=== PATIENT | female | born 1975 | race Hispanic/Latino ===

== ENCOUNTER 2021-09-17 13:59 | Inpatient (IN) | payer BC ==
[~2021-09-17 13:59] MED LIST: Iopamidol-370 76% 500 ML 1 ML ONE
[2021-09-17 17:05] VITALS: BMI 43.7
[2021-09-17] MEDS ORDERED: hydrALAZINE 20 MG/ML VIAL SLOW IVP PRN (18:16)
[2021-09-17] MEDS ORDERED: Dextrose 50% Abboject 50 ML SYRINGE SLOW IVP PRN (18:21)
[2021-09-17] MEDS ORDERED: Dextrose 5% in Water 1,000 ML IV PRN (18:21)
[2021-09-17] MEDS ORDERED: Ondansetron ODT 4 MG TAB PO PRN (18:23)
[2021-09-17] MEDS ORDERED: Pantoprazole 40 MG VIAL IVP SCH (18:25)
[2021-09-17] MEDS ORDERED: Nitroglycerin 0.4 MG TAB (25 Tab Bottle) SL PRN (18:28)
[2021-09-17] MEDS ORDERED: Electrolyte Replacement Protocol 1 EACH FS SCH (18:30)
[2021-09-17] MEDS ORDERED: Ondansetron PF 4 MG/2 ML Vial IVP SCH (18:30)
[2021-09-17] MEDS ORDERED: Morphine 4 MG/ML VIAL SLOW IVP SCH (18:30)
[2021-09-17] MEDS ORDERED: Famotidine/PF 20 mg/2ml Vial SLOW IVP SCH (19:15)
[2021-09-17] MEDS ORDERED: Aspirin Chewable 81 MG TAB PO SCH (19:15)
[2021-09-17 19:19] LABS: Alcohol Less than 10 mg/dL (Less than 10); Cardiac Risk 2.9 (Less than 4.5); Cholesterol 172 mg/dl (< 200 Desired); HDL Cholesterol 60 mg/dL (>60 Neg Risk); LDL Cholesterol, Calculated 92 mg/dL; Magnesium 1.5 mg/dL (1.6-2.6); Triglycerides 101 mg/dL (Less than 150)
[2021-09-17 19:43] LABS: CKMB 3.9 ng/mL (0-6.6)
[2021-09-17] MEDS ORDERED: Promethazine HCl 12.5 MG in Sodium Chloride 0.9% 50 ML IVPB PRN (20:32)
[2021-09-17] MEDS: Sodium Chloride 0.9% 1,000 ML IV SCH (21:17)
[2021-09-17] MEDS: Fioricet 325/50/40 mg Tablet PO PRN (21:18)
[2021-09-17] MEDS: Atorvastatin Calcium 40 MG TAB PO SCH (22:34)
[2021-09-18] MEDS: Fioricet 325/50/40 mg Tablet PO PRN ×4 (01:08→21:03)
[2021-09-18] MEDS: Sodium Chloride 0.9% 1,000 ML IV SCH ×4 (07:32→23:12)
[2021-09-18] MEDS ORDERED: Magnesium 2 GM/50 ML(in water) 2 GM in Premix Bag 1 BAG IVPB SCH (08:00)
[2021-09-18] MEDS ORDERED: Famotidine/PF 20 mg/2ml Vial SLOW IVP SCH (09:00)
[2021-09-18 09:13] LABS: #Basophils 0.1 thou/uL (0.0-0.2); #Eosinphils 0.3 thou/uL (0.0-0.7); #Monocytes 0.8 thou/uL (0.11-0.59); #Neutrophils 7.1 thou/uL (1.40-6.50); %Basophils 0.8 % (0.0-1.0); %Eosinophils 2.4 % (0.0-10.0); %Monocytes 6.8 % (0.0-10.0); %Neutrophils 63.1 % (42.0-75.0); Hemoglobin 13.9 g/dL (12.0-16.0); Mean Corpuscular HGB CONC 33.5 g/dL (32.0-36.0); Mean Corpuscular Hemoglobin 32.9 pg (27.0-31.0); Mean Platelet Volume 9.5 fL (7.4-10.4); Platelet Count 137 thou/uL (130-400); RBC Distribution Width 13.5 % (11.5-14.5); Red Blood Cell (RBC) Count 4.22 mill/uL (4.20-5.40); White Blood Cell (WBC) Count 11.2 thou/uL (4.8-10.8)
[2021-09-18 09:14] LABS: Hemoglobin A1c 8.1 % (4.0-6.0)
[2021-09-18 09:32] LABS: ALT (SGPT) 26 U/L (8-55); AST (SGOT) 37 U/L (5-34); Albumin 3.8 g/dL (3.5-5.0); Alkaline Phosphatase 111 U/L (40-110); Anion Gap 14 mmol/L (10-20); BUN (Urea Nitrogen) 9 mg/dL (7.0-18.7); Bilirubin, Total 0.9 mg/dL (0.2-1.2); Calc. Creatinine Clearance 143 mL/min (70-130); Calcium 8.9 mg/dL (7.8-10.44); Carbon Dioxide 23 mmol/L (22-29); Chloride 104 mmol/L (98-107); Estimated GFR 94; Globulin 3.5 g/dL (2.4-3.5); Glucose 228 mg/dL (70-105); Lipase 85 U/L (8-78); Magnesium 1.6 mg/dL (1.6-2.6); Potassium 3.6 mmol/L (3.5-5.1); Protein, Total 7.3 g/dL (6.0-8.3); Sodium 137 mmol/L (136-145)
[2021-09-18] MEDS: Enoxaparin Sodium 40 MG/0.4 ML SYRINGE SC SCH (09:51)
[2021-09-18] MEDS: Aspirin Chewable 81 MG TAB PO SCH (09:51)
[2021-09-18] MEDS: HumaLOG 300 UNITS/3 ML VIAL SC PRN ×3 (12:48→21:12)
[2021-09-18] MEDS: Ondansetron PF 4 MG/2 ML Vial IVP PRN (15:12)
[2021-09-18] MEDS: Nicotine 21 MG PATCH TD SCH (16:02)
[2021-09-18] MEDS: Atorvastatin Calcium 40 MG TAB PO SCH (21:03)
[2021-09-18] MEDS ORDERED: Ketorolac Tromethamine 30 MG/ML VIAL IVP SCH (23:00)
[2021-09-19] MEDS ORDERED: Ketorolac Tromethamine 30 MG/ML VIAL IVP SCH (04:30)
[2021-09-19 04:58] LABS: ALT (SGPT) 26 U/L (8-55); AST (SGOT) 44 U/L (5-34); Albumin 3.4 g/dL (3.5-5.0); Alkaline Phosphatase 134 U/L (40-110); Anion Gap 10 mmol/L (10-20); BUN (Urea Nitrogen) 8 mg/dL (7.0-18.7); Bilirubin, Total 0.5 mg/dL (0.2-1.2); Calc. Creatinine Clearance 139 mL/min (70-130); Calcium 8.3 mg/dL (7.8-10.44); Carbon Dioxide 25 mmol/L (22-29); Chloride 108 mmol/L (98-107); Estimated GFR 91; Globulin 3.1 g/dL (2.4-3.5); Glucose 222 mg/dL (70-105); Magnesium 2.1 mg/dL (1.6-2.6); Potassium 4.1 mmol/L (3.5-5.1); Protein, Total 6.5 g/dL (6.0-8.3); Sodium 139 mmol/L (136-145)
[2021-09-19 05:44] LABS: #Eosinphils 0.3 thou/uL (0.0-0.7); #Lymphocytes 2.6 thou/uL (1.20-3.40); #Monocytes 0.5 thou/uL (0.11-0.59); #Neutrophils 3.8 thou/uL (1.40-6.50); %Basophils 0.5 % (0.0-1.0); %Eosinophils 4.7 % (0.0-10.0); %Lymphocytes 35.9 % (21.0-51.0); %Monocytes 6.9 % (0.0-10.0); Hemoglobin 12.5 g/dL (12.0-16.0); Mean Corpuscular HGB CONC 33.2 g/dL (32.0-36.0); Mean Corpuscular Hemoglobin 33.2 pg (27.0-31.0); Mean Corpuscular Volume 99.7 fL (78.0-98.0); Mean Platelet Volume 9.2 fL (7.4-10.4); Platelet Count 107 thou/uL (130-400); Platelet Morphology Comment Appears Decreased; RBC Distribution Width 13.6 % (11.5-14.5); Red Blood Cell (RBC) Count 3.76 mill/uL (4.20-5.40); White Blood Cell (WBC) Count 7.3 thou/uL (4.8-10.8)
[2021-09-19] MEDS: HumaLOG 300 UNITS/3 ML VIAL SC PRN ×2 (05:56→21:37)
[2021-09-19] MEDS: Sodium Chloride 0.9% 1,000 ML IV SCH ×3 (06:19→22:17)
[2021-09-19] MEDS ORDERED: Nicotine 21 MG PATCH TD SCH (09:00)
[2021-09-19 09:43] LABS: HBCM Index 0.05 S/CO (0-0.79); HBSAg Index 0.29 S/CO (0-0.99); Hep A IgM AB Non-Reactive (NonReactive); Hep A IgM S/CO 0.14 S/CO (0-0.79); Hep B Surf Ag Non-Reactive S/CO (NonReactive); Hep C IgG Ab Non-Reactive (NonReactive); Hep C Index 0.11 S/CO (0-0.79); Hepatitis B Core IgM Abs Non-Reactive (NonReactive)
[2021-09-19] MEDS: Aspirin Chewable 81 MG TAB PO SCH (09:48)
[2021-09-19] MEDS: Ketorolac Tromethamine 30 MG/ML VIAL IVP PRN ×2 (12:32→21:15)
[2021-09-19] MEDS: Enoxaparin Sodium 40 MG/0.4 ML SYRINGE SC SCH (12:32)
[2021-09-19 13:22] LABS: INR-International Normal Ratio 1.1; Prothrombin Time 13.8 sec (12.0-14.7)
[2021-09-19] MEDS: Nicotine 21 MG PATCH TD SCH ×2 (15:57→21:30)
[2021-09-19] MEDS: Atorvastatin Calcium 40 MG TAB PO SCH (21:17)
[2021-09-20] MEDS: Ketorolac Tromethamine 30 MG/ML VIAL IVP PRN ×3 (05:30→21:03)
[2021-09-20] MEDS: HumaLOG 300 UNITS/3 ML VIAL SC PRN ×3 (05:32→23:29)
[2021-09-20] MEDS: metFORMIN 500 MG TAB PO SCH ×2 (12:05→18:16)
[2021-09-20] MEDS: Aspirin Chewable 81 MG TAB PO SCH (12:06)
[2021-09-20] MEDS: Enoxaparin Sodium 40 MG/0.4 ML SYRINGE SC SCH (12:06)
[2021-09-20] MEDS: Ondansetron PF 4 MG/2 ML Vial IVP PRN (12:15)
[2021-09-20] MEDS: Fioricet 325/50/40 mg Tablet PO PRN (13:05)
[2021-09-20] MEDS ORDERED: Iopamidol 15 ML ONE (13:59)
[2021-09-20] MEDS ORDERED: Bupivacaine PF 0.5% 30 ML VIAL ONE (13:59)
[2021-09-20] MEDS ORDERED: EPINEPHrine 1 MG/ML AMP ONE (13:59)
[2021-09-20] MEDS ORDERED: Scopolamine 1.5 mg/72 hour Patch TD SCH (14:00)
[2021-09-20] MEDS ORDERED: Fentanyl 100 MCG/2 ML VIAL ONE ×3 (14:49→18:54)
[2021-09-20] MEDS ORDERED: Ketorolac Tromethamine 30 MG/ML VIAL IVP SCH (15:00)
[2021-09-20] MEDS ORDERED: fentaNYL Citrate/PF 100 MCG/2 ML SYRINGE ONE (16:10)
[2021-09-20] MEDS ORDERED: Lidocaine 2% 6 ML SYR ONE (16:17)
[2021-09-20] MEDS ORDERED: Sodium Chloride 0.9% 100 ML ONE (16:21)
[2021-09-20] MEDS ORDERED: CEFAZOLIN 2 GM VIAL ONE (16:21)
[2021-09-20] MEDS ORDERED: PROPOFOL 200 MG/20 ML VIAL ONE (16:32)
[2021-09-20] MEDS ORDERED: Phenylephrine 10 MG/ML VIAL ONE (16:32)
[2021-09-20] MEDS ORDERED: diphenhydrAMINE 50 MG/ML VIAL ONE (16:32)
[2021-09-20] MEDS ORDERED: Metoclopramide HCl 10 MG/2 ML VIAL ONE (16:32)
[2021-09-20] MEDS ORDERED: Ondansetron PF 4 MG/2 ML Vial ONE (16:32)
[2021-09-20] MEDS ORDERED: Lidocaine 1% PF 5 ML VIAL ONE (16:32)
[2021-09-20] MEDS ORDERED: Ketorolac Tromethamine 30 MG/ML VIAL ONE (16:32)
[2021-09-20] MEDS ORDERED: Rocuronium Bromide 10 MG/ML (10ML VIAL) ONE (16:32)
[2021-09-20] MEDS ORDERED: Neostigmine Methylsulfate 3 MG/3 ML SYRINGE ONE (16:32)
[2021-09-20] MEDS ORDERED: Glycopyrrolate 0.2 MG/ML 5 ML SYRINGE ONE (16:32)
[2021-09-20] MEDS ORDERED: Succinylcholine 200 MG/10 ml SYRINGE FS ONE (16:32)
[2021-09-20] MEDS ORDERED: traMADol HCl 50 MG TAB PO PRN (16:59)
[2021-09-20] MEDS ORDERED: Acetaminophen 500 MG TAB PO PRN (16:59)
[2021-09-20] MEDS ORDERED: Non-Formulary Item 1 EACH (Butalb/Acetaminophen/Caffeine [Butalb-Acetamin-Caff 50-325-40] PO PRN (17:00)
[2021-09-20] MEDS ORDERED: Acetaminophen 500 MG TAB PO SCH (17:00)
[2021-09-20] MEDS ORDERED: HYDROmorphone 2 MG/ML VIAL ONE ×2 (17:56→19:20)
[2021-09-20] MEDS: Sodium Chloride 0.9% 1,000 ML IV SCH (18:15)
[2021-09-20] MEDS: Nicotine 21 MG PATCH TD SCH (18:16)
[2021-09-20] MEDS ORDERED: Rosuvastatin 20 MG TAB PO SCH (21:00)
[2021-09-20] MEDS ORDERED: Losartan 25 MG TAB PO SCH (21:00)
[2021-09-21] MEDS: Ketorolac Tromethamine 30 MG/ML VIAL IVP PRN ×3 (00:14→12:54)
[2021-09-21] MEDS: Morphine 4 MG/ML VIAL SLOW IVP PRN ×3 (00:17→08:31)
[2021-09-21] MEDS: Sodium Chloride 0.9% 1,000 ML IV SCH (01:29)
[2021-09-21] MEDS: Fioricet 325/50/40 mg Tablet PO PRN ×2 (03:45→09:26)
[2021-09-21] MEDS: HumaLOG 300 UNITS/3 ML VIAL SC PRN ×2 (06:09→12:52)
[2021-09-21] MEDS ORDERED: metFORMIN 500 MG TAB PO SCH (08:00)
[2021-09-21] MEDS: Enoxaparin Sodium 40 MG/0.4 ML SYRINGE SC SCH (08:31)
[2021-09-21] MEDS: metFORMIN 500 MG TAB PO SCH (08:34)
[2021-09-21] MEDS: Aspirin Chewable 81 MG TAB PO SCH (08:35)
[2021-09-21] MEDS: Polyethylene Glycol 3350 17 GM Packet PO SCH ×2 (08:35→13:12)
[2021-09-21 08:42] LABS: ALT (SGPT) 39 U/L (8-55); AST (SGOT) 78 U/L (5-34); Albumin 3.4 g/dL (3.5-5.0); Alkaline Phosphatase 110 U/L (40-110); Anion Gap 12 mmol/L (10-20); BUN (Urea Nitrogen) 8 mg/dL (7.0-18.7); Bilirubin, Total 0.7 mg/dL (0.2-1.2); Calc. Creatinine Clearance 145 mL/min (70-130); Calcium 8.7 mg/dL (7.8-10.44); Carbon Dioxide 22 mmol/L (22-29); Chloride 106 mmol/L (98-107); Estimated GFR 96; Globulin 3.3 g/dL (2.4-3.5); Glucose 186 mg/dL (70-105); Potassium 4.1 mmol/L (3.5-5.1); Protein, Total 6.7 g/dL (6.0-8.3); Sodium 136 mmol/L (136-145)
[2021-09-21] MEDS ORDERED: PHENTERMINE HCL 37.5 MG PO SCH (09:00)
[2021-09-21 12:52] VITALS: BP 112/62; TEMP 97.3
[2021-09-27] MEDS ORDERED: Semaglutide [Ozempic] 1 MG/0.75 ML Pen.Injctr SC SCH (09:00)
== END 2021-09-21 14:27 | disposition home or self-care (01) | DRG 417 ==
LOC: T4-B 16:19 → 2SW 20:21
PROVIDERS: ADMIT Internal Medicine; ATTEND Internal Medicine
PROC: 0FT44ZZ Resection of Gallbladder, Percutaneous Endoscopic Approach (ICD-10-PCS; principal; 2021-09-20)
PROC: BF101ZZ Fluoroscopy of Bile Ducts using Low Osmolar Contrast (ICD-10-PCS; 2021-09-20)
PROC: 0FB13ZX Excision of Right Lobe Liver, Percutaneous Approach, Diagnostic (ICD-10-PCS; 2021-09-20)
DX: K81.0 Acute cholecystitis (principal); K85.90 Acute pancreatitis without necrosis or infection, unspecified; Z68.41 Body mass index [BMI] 40.0-44.9, adult; Z20.822 Contact with and (suspected) exposure to COVID-19; I10 Essential (primary) hypertension; E78.5 Hyperlipidemia, unspecified; F41.9 Anxiety disorder, unspecified; F32.A Depression, unspecified; E11.69 Type 2 diabetes mellitus with other specified complication; E88.81 Metabolic syndrome and other insulin resistance; E66.01 Morbid (severe) obesity due to excess calories; K74.60 Unspecified cirrhosis of liver; F17.210 Nicotine dependence, cigarettes, uncomplicated; K74.69 Other cirrhosis of liver; G43.909 Migraine, unspecified, not intractable, without status migrainosus; Z90.710 Acquired absence of both cervix and uterus
CPT/HCPCS: 36415; 36416; 47532; 71275; 74177; 76705; 76856; 78227; 80053; 80061; 80074; 80307; 82150; 82553; 83036; 83690; 83735; 84443; 85025; 85610; 88304; 88307; 88313; 93306; 94760; A9537; C1713; J0171; J0690; J1170; J1200; J1610; J1650; J1815; J1885; J2270; J2370; J2405; J2550; J2704; J2765; J3010; J3475; J3490; J7050; Q0162; Q9967; S0020; S0028; U0003; U0005